=== PATIENT | female | born 1990 | race Caucasian/White ===

== ENCOUNTER 2021-09-11 08:05 | Emergency (ER) | payer BC, OTHER ==
[2021-09-11] MEDS ORDERED: Acetaminophen/Codeine 30-300mg Tablet ONE (08:58)
[2021-09-11] MEDS ORDERED: Ketorolac Tromethamine 60 MG/2 ML VIAL ONE ×4 (08:59→09:00)
[2021-09-11] MEDS ORDERED: methylPREDNISolone Sod Succ/PF 125 MG/2 ML VIAL ONE (08:59)
== END 2021-09-11 09:16 | disposition home or self-care (01) ==
LOC: BURERS 08:05
DX: M54.16 Radiculopathy, lumbar region (principal)
CPT/HCPCS: 96372; 99283; J1885; J2930

== ENCOUNTER 2023-07-19 21:45 | Emergency (ER) | payer OTHER ==
[~2023-07-19 21:45] MED LIST: Iopamidol 370 76% 100 ML VIAL ONE
[2023-07-19] MEDS ORDERED: Lorazepam 2 MG/ML VIAL ONE (22:39)
[2023-07-19] MEDS ORDERED: Aspirin 325 MG TAB ONE (22:39)
[2023-07-19 23:11] LABS: #Monocytes 0.5 thou/uL (0.11-0.59); #Neutrophils 5.5 thou/uL (1.40-6.50); %Basophils 0.5 % (0.0-1.0); %Eosinophils 0.1 % (0.0-10.0); %Monocytes 5.4 % (0.0-10.0); Calc. Creatinine Clearance 0 mL/min (70-130); Carbon Dioxide 23 mmol/L (22-29); Chloride 105 mmol/L (98-107); Hematocrit 45.3 % (36.0-47.0); Hemoglobin 14.4 g/dL (12.0-16.0); Mean Corpuscular HGB CONC 31.8 g/dL (32.0-36.0); Mean Corpuscular Hemoglobin 28.6 pg (27.0-31.0); Mean Corpuscular Volume 89.9 fl (78.0-98.0); Mean Platelet Volume 6.1 fL (7.4-10.4); Platelet Count 339 10x3/uL (130-400); Potassium 4.1 mmol/L (3.5-5.1); RBC Distribution Width 12.5 % (11.5-14.5); Red Blood Cell (RBC) Count 5.04 mill/uL (4.20-5.40); Sodium 140 mmol/L (136-145); White Blood Cell (WBC) Count 9.1 10x3/uL (4.8-10.8)
[2023-07-19 23:12] LABS: ALT (SGPT) 22 U/L (8-55); AST (SGOT) 35 U/L (5-34); Albumin 3.8 g/dL (3.5-5.0); Alkaline Phosphatase 96 U/L (40-110); Anion Gap 16 mmol/L (10-20); BUN (Urea Nitrogen) 8 mg/dL (7.0-18.7); Bilirubin, Total 0.3 mg/dL (0.2-1.2); Calcium 9.2 mg/dL (7.8-10.44); Estimated GFR 86; Globulin 3.2 g/dL (2.4-3.5); Glucose 83 mg/dL (70-105); Troponin I Less than 0.010 ng/mL (< 0.028)
== END 2023-07-20 02:09 | disposition home or self-care (01) ==
LOC: BURERS 21:45
DX: R07.9 Chest pain, unspecified (principal)
CPT/HCPCS: 71045; 71275; 80053; 83880; 84484; 85025; 85379; 93005; 96374; J2060; Q9967

== ENCOUNTER 2024-11-06 09:23 | Emergency (ER) | payer BC, OTHER, SELFPAY ==
[2024-11-06] MEDS ORDERED: Mag-Al 1200 mg/1200 mg/30 ML UDCUP ONE (10:04)
[2024-11-06] MEDS ORDERED: Lidocaine Viscous Sol 2% 15 ml UD Cup ONE (10:04)
[2024-11-06] MEDS ORDERED: Morphine 4 MG/ML VIAL ONE (10:04)
[2024-11-06] MEDS ORDERED: Ondansetron PF 4 MG/2 ML Vial ONE (10:04)
[2024-11-06] MEDS ORDERED: Morphine 2 MG/ML VIAL ONE (10:04)
[2024-11-06 10:13] LABS: Hematocrit 44.3 % (36.0-47.0); Hemoglobin 14.8 g/dL (12.0-16.0); Mean Corpuscular HGB CONC 33.5 g/dL (32.0-36.0); Mean Corpuscular Hemoglobin 29.3 pg (27.0-31.0); Mean Corpuscular Volume 87.3 fl (78.0-98.0); Mean Platelet Volume 7.1 fL (7.4-10.4); Platelet Count 302 10x3/uL (130-400); RBC Distribution Width 10.9 % (11.5-14.5); Red Blood Cell (RBC) Count 5.07 mill/uL (4.20-5.40); White Blood Cell (WBC) Count 7.7 10x3/uL (4.8-10.8)
[2024-11-06] MEDS ORDERED: Iopamidol 370 76% 100 ML VIAL ONE (10:15)
[2024-11-06 10:26] LABS: ALT (SGPT) 11 U/L (8-55); AST (SGOT) 29 U/L (5-34); Albumin 3.5 g/dL (3.5-5.0); Alkaline Phosphatase 86 U/L (40-110); Anion Gap 13 mmol/L (10-20); BUN (Urea Nitrogen) 12 mg/dL (7.0-18.7); Bilirubin, Total 0.5 mg/dL (0.2-1.2); Calc. Creatinine Clearance 0 mL/min (70-130); Calcium 9.1 mg/dL (7.8-10.44); Carbon Dioxide 22 mmol/L (22-29); Chloride 107 mmol/L (98-107); Estimated GFR 102; Globulin 3.2 g/dL (2.4-3.5); Glucose 88 mg/dL (70-105); Lipase 48 U/L (8-78); Potassium 3.9 mmol/L (3.5-5.1); Protein, Total 6.7 g/dL (6.0-8.3); Sodium 138 mmol/L (136-145); Troponin I Less than 0.010 ng/mL (< 0.028)
[2024-11-06 10:57] LABS: Eosinophils 7 % (0-10); Lymphocytes 46 % (21-51); MDiff Complete? YES; Monocytes 4 % (0-10); Neutrophil 43 % (42-75); Platelet Adequacy Comment Appears Adequate
[2024-11-06 11:27] LABS: BHCG - Serum Negative (NEGATIVE); Pregs Control Background? CLEAR/WHITE (CLR/WHITE); Pregs Control Bar Appear? YES (CONTROL BAR)
== END 2024-11-06 12:47 | disposition home or self-care (01) ==
LOC: BURERS 09:23
DX: K29.00 Acute gastritis without bleeding (principal)
CPT/HCPCS: 71260; 74177; 80053; 83690; 83880; 84484; 84703; 85025; 93005; 96374; 96375; J2270; J2272; J2405; Q9967

== ENCOUNTER 2025-08-28 08:58 | Outpatient (CLI) | payer BC ==
[2025-08-28] MEDS ORDERED: Iopamidol 370 76% 100 ML VIAL ONE (10:03)
== END 2025-08-28 08:59 | disposition home or self-care (01) ==
LOC: BURCT 08:58
PROVIDERS: ATTEND Family Medicine
DX: R93.89 Abnormal findings on diagnostic imaging of other specified body structures (principal)
CPT/HCPCS: 71260; Q9967

== ENCOUNTER 2025-10-15 13:01 | Emergency (ER) | payer BC ==
[2025-10-15] MEDS ORDERED: HYDROcodone/Acetaminophen 10/325 mg Tablet ONE (14:04)
== END 2025-10-15 14:20 | disposition home or self-care (01) ==
LOC: BURERS 13:01
DX: S82.831A Other fracture of upper and lower end of right fibula, initial encounter for closed fracture (principal); X58.XXXA Exposure to other specified factors, initial encounter
CPT/HCPCS: 29515; 99283